=== PATIENT | female | born 1990 | race Caucasian/White ===

== ENCOUNTER 2017-06-20 09:57 | Emergency (ER) | payer OTHER | END 2017-06-20 11:24 | disposition home or self-care (01) | LOC: FTE 09:57 → E/R 11:24 | DX: H69.93 Unspecified Eustachian tube disorder, bilateral (principal); H66.93 Otitis media, unspecified, bilateral | CPT/HCPCS: 99283; Z7502 ==

== ENCOUNTER 2018-07-29 21:49 | Emergency (ER) | payer OTHER | END 2018-07-30 01:23 | disposition home or self-care (01) | LOC: FTE 21:49 | DX: R07.89 Other chest pain (principal) | CPT/HCPCS: 71045; 81025; 93005; 99284-25 ==

== ENCOUNTER 2018-08-15 13:04 | Emergency (ER) | payer OTHER ==
[2018-08-15] MEDS: ACETAMINOPHEN 325 MG TAB PO (16:00)
[2018-08-15 16:13] LABS: ADD MAN DIFF? NO
[2018-08-15 16:18] LABS: BASOPHIL # 0.1 10^3/ul (0.0-0.1); BASOPHILS % 0.7 % (0.0-2.0); EOSINOPHILS % 0.3 % (0.0-7.0); HEMATOCRIT 42.9 % (37.0-47.0); HEMOGLOBIN 14.3 g/dl (12.0-16.0); LYMPHOCYTES # 1.1 10^3/ul (0.8-2.9); LYMPHOCYTES % 15.8 % (15.0-51.0); MEAN CORPUSCULAR HEMOGLOBIN 29.9 pg (29.0-33.0); MEAN CORPUSCULAR HGB CONC 33.3 g/dl (32.0-37.0); MEAN CORPUSCULAR VOLUME 89.7 fl (82.0-101.0); MEAN PLATELET VOLUME 9.6 fl (7.4-10.4); MONOCYTE # 0.2 10^3/ul (0.3-0.9); MONOCYTES % 3.6 % (0.0-11.0); NEUTROPHIL # 5.3 10^3/ul (1.6-7.5); NEUTROPHILS % 79.3 % (39.0-77.0); PLATELET COUNT 339 10^3/UL (140-415); RED BLOOD COUNT 4.78 10^6/ul (4.20-5.40); RED CELL DISTRIBUTION WIDTH 12.2 % (11.5-14.5)
[2018-08-15 16:18] LABS: WHITE BLOOD COUNT 6.7 10^3/ul (4.8-10.8)
[2018-08-15 16:40] LABS: ALANINE AMINOTRANSFERASE 23 IU/L (13-69); ALBUMIN 5.1 g/dl (3.3-4.9); ALBUMIN/GLOBULIN RATIO 1.82; ALKALINE PHOSPHATASE 81 IU/L (42-121); ANION GAP 13 (5-13); ASPARTATE AMINO TRANSFERASE 26 IU/L (15-46); BILIRUBIN,INDIRECT 0.6 mg/dl (0-1.1); BILIRUBIN,TOTAL 0.6 mg/dl (0.2-1.3); BLOOD UREA NITROGEN 9 mg/dl (7-20); CALCIUM 10.3 mg/dl (8.4-10.2); CARBON DIOXIDE 23 mmol/L (21-31); CHLORIDE 106 mmol/L (97-110); CREATININE 0.62 mg/dl (0.44-1.00); Estimated GFR > 60 mL/min (>60); GLUCOSE 91 mg/dl (70-220); POTASSIUM 4.1 mmol/L (3.5-5.1); SODIUM 142 mmol/L (135-144); TOTAL PROTEIN 7.9 g/dl (6.1-8.1)
[2018-08-15 17:15] LABS: FREE THYROXINE INDEX (Calc) 2.69 ug/ml (0.65-3.89); T3 UPTAKE 31.3 % (23.5-40.5); T4 (THYROXINE) 8.6 ug/dl (5.5-11.0)
== END 2018-08-15 17:59 | disposition home or self-care (01) ==
LOC: FTE 13:04
DX: M54.2 Cervicalgia (principal)
CPT/HCPCS: 36415; 70360; 76536; 80053; 84436; 84443; 84479; 85025; 93005; 99285-25